=== PATIENT | female | born 1970 | race Caucasian/White ===

== ENCOUNTER 2022-10-16 12:03 | Outpatient (OUT) | payer BC, SELFPAY ==
--- NOTE | 2022-10-16 12:13 | XR_ITS ---
The [address] [address] Patient Name: CALLUM OSHEA MRN: [id number] date: 1970 Sex: F Assigned Patient Location: [facility] Current Patient Location: [facility] Accession/Order Number: [id number] Exam Date: 10/16/2022 12:18 Report Date: 10/16/2022 12:33 At the request of: RAF ELENA Procedure: XR chest 2V EXAM: XR chest 2V HISTORY: Cough R05.8 COMPARISON: None. TECHNIQUE: PA and lateral views of the chest. FINDINGS: The cardiomediastinal silhouette is normal. No focal consolidation is identified. There is no pneumothorax. No pleural effusion is noted. The osseous structures are intact. IMPRESSION: No acute cardiopulmonary process. Electronically authenticated by: GENIA CAMACHO Date: 10/16/2022 12:33
== END 2022-10-16 12:04 | disposition home or self-care (01) ==
LOC: RAD 12:09
PROVIDERS: PCP Family Medicine; Visit Provider Family Medicine
DX: R05.8 Other specified cough (principal)
CPT/HCPCS: 71046

== ENCOUNTER 2023-08-02 14:27 | Outpatient (OUT) | payer BC, SELFPAY ==
[2023-08-02 14:55] LABS: Basophils Absolute Auto 0.1 10^3/uL (0.0-0.1); Basophils Percent Auto 1.1 % (0.2-2.0); Eosinophils Absolute Auto 0.1 10^3/uL (0.0-0.7); Eosinophils Percent Auto 1.3 % (0.9-7.0); Hematocrit 39.9 % (36.0-48.0); Hemoglobin 13.4 g/dL (12.0-16.0); Immature Granulocytes Abs Auto 0.01 10^3/uL (0.00-0.03); Immature Granulocytes Pct Auto 0.2 % (0.0-0.5); Lymphocytes Absolute Auto 1.6 10^3/uL (1.2-3.8); Lymphocytes Percent Auto 33.8 % (20.5-60.0); Mean Corpuscular HGB Conc 33.6 g/dL (29.9-35.2); Mean Corpuscular Hemoglobin 32.6 pg (26.7-34.0); Mean Corpuscular Volume 97.1 fL (81.0-99.0); Mean Platelet Volume 9.1 fL (9.5-13.5); Monocytes Absolute Auto 0.4 10^3/uL (0.3-0.8); Monocytes Percent Auto 8.8 % (1.7-12.0); Neutrophils Absolute Auto 2.6 10^3/uL (1.4-6.5); Neutrophils Percent Auto 54.8 % (43.0-75.0); Platelet Count 383 10^3/uL (150-450); Red Blood Count 4.11 10^6/uL (4.20-5.40); Red Cell Distribution Width 11.6 % (11.0-15.0); White Blood Count 4.7 10^3/uL (4.0-11.0)
[2023-08-02 15:07] LABS: Estimated Average Glucose 100 mg/dL; Glycohemoglobin A1C 5.1 % (4.5-6.2)
[2023-08-02 16:02] LABS: Alanine Aminotransferase 20 U/L (14-59); Albumin Globulin Ratio 1.4; Albumin Level 4.3 g/dL (3.4-5.0); Alkaline Phosphatase 48 U/L (46-116); Anion Gap 11.6; Aspartate Amino Transferase 15 U/L (15-37); BUN Creatinine Ratio 17.3; Bilirubin Total 0.6 mg/dL (0.2-1.0); Calcium 9.1 mg/dL (8.5-10.1); Carbon Dioxide 30.1 mmol/L (21.0-32.0); Chloride 98 mmol/L (98-107); Chol HDL Ratio 2.4; Cholesterol 232 mg/dL (<=200); Estimated GFR (African America >60 (>=60); Estimated GFR (Non-African Ame >60 (>=60); Free T3 2.78 pg/mL (2.18-3.98); Globulin 3.1 g/dL; Glucose 94 mg/dL (74-106); HDL Cholesterol 98 mg/dL (40-60); Sodium 137 mmol/L (136-145); Thyroid Stimulating Hormone 4.449 uIU/mL (0.358-3.740); Total Protein 7.4 g/dL (6.4-8.2); Triglycerides 50 mg/dL (<=150)
[2023-08-02 16:12] LABS: Potassium 2.7 mmol/L (3.5-5.1)
[2023-08-03 10:09] LABS: Insulin 5.8 uIU/mL (2.6-24.9)
== END 2023-08-02 14:28 | disposition home or self-care (01) ==
LOC: LAB 14:29
PROVIDERS: PCP Family Medicine; Visit Provider Family Medicine
DX: Z00.00 Encounter for general adult medical examination without abnormal findings (principal)
CPT/HCPCS: 36415; 80053; 80061; 83036; 83525; 83540; 84436; 84443; 84481; 85025

== ENCOUNTER 2023-09-02 16:46 | Outpatient (OUT) | payer BC, SELFPAY ==
[2023-09-02 17:30] LABS: Thyroid Stimulating Hormone 7.612 uIU/mL (0.358-3.740)
[2023-09-02 18:27] LABS: Free T4 1.03 ng/dL (0.76-1.46)
== END 2023-09-02 16:47 | disposition home or self-care (01) ==
PROVIDERS: PCP Family Medicine; Visit Provider Family Medicine
DX: R79.89 Other specified abnormal findings of blood chemistry (principal)
CPT/HCPCS: 36415; 84439; 84443

== ENCOUNTER 2025-03-25 19:30 | Emergency (ER) | payer BC, SELFPAY ==
--- OUTSIDE RECORDS SUMMARY | 2024-09-15 09:30 | XMS_ITS ---
Author Organization The [facility] in [place] Address [address] [place] [address] Care Team Providers Care Tube Room Cashier Name Role Phone Torito Chaney Primary Care Provider REASON FOR VISIT sore throat Encounters Encounter Location Date Provider Diagnosis [facility] [address] [place] [address] 09/15/2024 Torito Chaney Plan Of Treatment Next Appt Details Provider Name:Torito Chaney, 02:30:00 PM, [address] [place], [address], Progress Notes * Araseli BAE ADOB:1970 (54 yo F)Acc No.[id number]:09/15/2024 UNLOCKED PROGRESS NOTE Progress Note Patient: Romulo HORTA Araseli Vyas :?Christian Chaney ([facility]), MDDOB:1970???Age: 53 Y???Sex:FemaleDate:09/15/2024Phone:[phone]:[address], [place], [place] Subjective: * Chief Complaints: * 1 . Sore throat. * Medical History: Objective: * Vitals: Assessment: Plan: * Treatment: * * Electronic signature of Torito Chaney MD, [id number] on 03/25/2025 at 08:14 PM EST Sign off status: PendingVisit Status:?CANC (Cancelled) * Provider: Raúl Chaney ([facility])MD Date: 0 09/15/2024 Generated for Printing/Faxing/eTransmitting on:?03/25/2025 08:14 PM EST
--- OUTSIDE RECORDS SUMMARY | 2024-12-19 09:30 | XMS_ITS ---
Author Organization The [facility] in [place] Address [address] [place] [address] Care Team Providers Care Solderer Electronic Name Role Phone Torito Chaney Primary Care Provider [phone] REASON FOR VISIT weight check Vital Signs Height 64 in 12/19/2024 Encounters Encounter Location Date Provider Diagnosis [facility] [address] [place] [address] 12/19/2024 Torito Chaney Plan Of Treatment Next Appt Details Provider Name:Torito Chaney, 02:30:00 PM, [address] [place], [address], Progress Notes * Araseli BAE ADOB:1970 (54 yo F)Acc No.[id number]:12/19/2024 UNLOCKED PROGRESS NOTE Nurse Visit Patient: Romulo Araseli HORTA :?Christian Chaney ([facility]), MDDOB:1970???Age: 54 Y???Sex:FemaleDate:12/19/2024Phone:[phone]:[address], [place], [place]D[place] In:02:33 PM EST Subjective: * Chief Complaints: * 1 . Weight check. * Medical History: Objective: * Vitals: H t: 64 in, Ht-cm: 162.56 cm. Assessment: Plan: * Treatment: * * Electronic signature of Torito Chaney MD, [id number] on 03/25/2025 at 08:13 PM EST Sign off status: PendingVisit Status:?CANCPHONE (Cancelled Phone) * Provider: Raúl Chaney ([facility])MD Date: 0 12/19/2024 Generated for Printing/Faxing/eTransmitting on:?03/25/2025 08:13 PM EST
[2025-03-25 19:52] VITALS: BP 149/96; PULSE 86; TEMP 37.1; O2SAT 96; BMI 23.1
--- NOTE | 2025-03-25 19:58 | XR_ITS ---
The [place] [id number] Patient Name: CALLUM OSHEA MRN: [id number] date: 1970 Sex: F Assigned Patient Location: ER Current Patient Location: Accession/Order Number: [id number] Exam Date: 03/25/2025 20:17 Report Date: 03/26/2025 07:36 At the request of: NAHID METCALF Procedure: XR wrist RT min 3V RIGHT WRIST - 3 views COMPARISON: None CLINICAL DATA: Patient fell and has pain at the right wrist. AP, lateral and oblique views were obtained. There is a comminuted intra-articular fracture at the distal radius. There is slight apex volar angulation. There is also a mildly displaced ulnar styloid fracture. No dislocation is identified. Soft tissue swelling is seen. XR/XR wrist RT min 3V IMPRESSION: FRACTURES AT THE DISTAL RADIUS AND ULNAR STYLOID. Impression dictated by: Jenny Galo M.D. 03/26/2025 7:36 AM Dictation Location: [place] [address] Electronically authenticated by: [id number] Y Date: 03/26/2025 07:36
--- NOTE | 2025-03-25 19:58 | ED.UPPEXIN1 ---
HPI HPI - Extremity Injury (Upper) General Chief Complaint: Extremity Injury, Upper Stated Complaint: Extremity Injury, Upper Time Seen by Provider: 03/25/25 19:55 Source: patient Mode of arrival: walk-in Limitations: no limitations History of Present Illness HPI narrative: cc - right wrist injury Patient tripped over her grand-daughter and fell onto outstretched right arm. She told me I heard a really loud crack . Right wrist deformity. This occurred about an hour ago and she had not taken anything for the pain. No other injuries or complaints - she denied hitting her head, injuring her neck, back or torso or any other extremities. She is right handed. Related Data Home Medications ?Medication ?Instructions ?Recorded ?Confirmed levothyroxine 75 mcg tablet mcg 03/25/25 phentermine 37.5 mg tablet mg 03/25/25 potassium chloride 20 mEq meq PO 03/25/25 tablet,extended release(part/cryst) temazepam 30 mg capsule mg 03/25/25 Previous Rx's ?Medication ?Instructions ?Recorded hydrocodone 5 mg-acetaminophen 325 1 tab PO Q6H PRN pain 5 days #14 03/25/25 mg tablet tabs Allergies Allergy/AdvReac Type Severity Reaction Status Date / Time No Known Drug Allergies Allergy Verified 03/25/25 19:54 Opioid HPI Opioid Management Most Recent Pain and Opioid Data: Last Pain Scale 8 Today, 20:04 Last MAR Pain Assessment Today, 20:04 PFSH PFSH Social History Little interest or pleasure in doing things: not at all Feeling down, depressed, or hopeless: not at all Exam Narrative Exam Narrative: Nurses note and vital signs reviewed and patient is not hypoxic. afebrile General: The patient appears well and in no apparent distress. Patient is resting comfortably on cart. GCS = 15. Skin: Warm, dry, no pallor noted. Head: Normocephalic, atraumatic Neck: Supple, trachea mid-line. Full ROM and no cervical spinal tenderness. Eyes: PERRLA, EOMI ENT: No oral or maxillofacial injury Cardiovascular: Regular Rate and Rhythm Respiratory: Patient is in no distress, no accessory muscle use, lungs are clear to auscultation, no wheezing, rales or rhonchi Back: No thoracic vertebral or lumbar vertebral tenderness to palpation. Musculoskeletal: Right wrist = deformity with volar displacement of the distal right forearm with respect to the right hand. Patient neurovascularly intact distally. No additional sign of long bone fracture - no right clavicular, right shoulder, right humeral, right elbow, proximal right forearm tenderness. No right hand or finger swelling.Moves remaining 3 extremities in all modalities with 5/5 strength. Neurological: A&O x4, normal speech, normal coordination, normal motor, normal sensory. Psychiatric: Cooperative Constitutional Vital Signs, click to edit/add: Last Vital Signs Temp 98.8 F 03/25/25 19:52 Pulse 71 03/25/25 21:22 Resp 18 03/25/25 19:52 BP 149/96 H 03/25/25 19:52 Pulse Ox 97 03/25/25 21:22 O2 Del Method Room Air 03/25/25 19:52 Course Vital Signs Vital signs: Vital Signs Temperature 98.8 F 03/25/25 19:52 Pulse Rate 86 03/25/25 19:52 Respiratory Rate 18 03/25/25 19:52 Blood Pressure 149/96 H 03/25/25 19:52 Pulse Oximetry 96 03/25/25 19:52 Oxygen Delivery Method Room Air 03/25/25 19:52 Temperature 98.8 F 03/25/25 19:52 Pulse Rate 71 03/25/25 21:22 Respiratory Rate 18 03/25/25 19:52 Blood Pressure 149/96 H 03/25/25 19:52 Pulse Oximetry 97 03/25/25 21:22 Oxygen Delivery Method Room Air 03/25/25 19:52 MDM - Extremity Injury (Upper) MDM Narrative Medical decision making narrative: Patient was given medication for pain and x-rays of the right wrist were obtained. She has a compression type fracture of the distal right radius and ulna with angulation and displacement -the hand is displaced in a dorsal direction from the distal forearm. Patient was agreeable to allow us to put in a peripheral IV and give her some Versed and Dilaudid, as well as some Zofran for nausea prevention, so that I can attempt to straighten this as we placed the patient in an OCL splint on the volar surface of the hand and forearm. The BETO Saleh - assisted me as I applied traction distally after placing the volar OCL splint. Post-reduction xrays showed adequate re-alignment. Pt discharged home with prescription for [place] for breakthrough pain and a referral to [facility]. Pt given information of proper care of splint. Imaging Data xr wrist: Attestation: I personally reviewed and interpreted this imaging study as follows: My impression: Compression fracture of the distal right radius and ulna with angulation and displacement with the right hand dorsally displaced from the distal right forearm post-reduction xr wrist: Attestation: I personally reviewed and interpreted this imaging study as follows: My impression: post-reduction fracture distal radius and ulna - improved alignment in both lateral and AP abraham Discharge Plan Discharge Chief Complaint: Extremity Injury, Upper Clinical Impression: Closed fracture of distal end of right radius, Closed fracture of distal end of right ulna Patient Disposition: Home, Self-Care Time of Disposition Decision: 21:26 Prescriptions / Home Meds: New hydrocodone-acetaminophen 5-325 mg tablet 1 tab PO Q6H PRN (Reason: pain) 5 Days Qty: 14 0RF No Action phentermine 37.5 mg tablet levothyroxine 75 mcg tablet potassium chloride 20 mEq tablet,ER particles/crystals PO temazepam 30 mg capsule Print Language: Italian Instructions: Wrist Fracture in Adults (ED), Splint Care (ED) Referrals: Arnav Ricks MD [Physician, Orthopedics] - As soon as possible
[2025-03-25] MEDS: HYDROCODONE/ACET 5-325 MG TABLET 1 TAB PO (20:04)
--- OUTSIDE RECORDS SUMMARY | 2025-03-25 20:13 | XMS_ITS | Patient Health Record ---
Author Organization The [facility] in [place] Address [address] [place] [address] Care Team Providers Care Fiction Writer Name Role Phone Torito Chaney Primary Care Provider Allergies No Known Allergies Reason For Referral No Information Medications Medication SIG (Take, Route, Frequency, Duration) Notes Start Date End Date Status Adipex-P 37.5 MG 1 tablet before breakfast Orall y Once a day; Duration: 30 days 5ActiveAmoxicillin-Pot Clavulanate 875-125 MG1 tablet Orally every 12 hrs; Duration: 10 days5ActiveSUMAtriptan Succinate 100 MGTAKE 1 TABLET BY MOUTH AT ONSET, MAY REPEAT IN 1 HOUR; Duration: 90 daysActivePotassium Chloride Marina ER 20 MEQTAKE 1 TABLET BY MOUTH WITH FOOD TWICE DAILY; Duration: 90ActiveTemazepam 30 MG1 capsule at bedtime as needed Orally Once a day; Duration: 90 days5ActiveLevothyroxine Sodium 75 MCGTAKE 1 TABLET BY MOUTH ONCE DAILY IN THE MORNING ON AN EMPTY STOMACH; Duration: 90Active Social History Tobacco Use: Social History Observation Description Date Details (start date - stop date) Former Smoker 04/19/1988 - 04/19/1994 Tobacco Use/Smoking Question Answer Notes Patient is a former smoker When did you start smoking?04/19/1988When did you stop smoking?04/19/1994How long has it been since you last smoked?> 10 yearsAlcohol Screen (Audit-C) Question Answer Notes Did you have a drink containing alcohol in the p ast year? No [id number]QKX-[id number] (Standard) Question Answer Notes Did you have a drink containing alcohol in the p ast year? Yes How often did you have a drink containing alcohol in the past year?Never (0 point)How many drinks did you have on a typical day when you were drinking in the past year?1 or 2 drinks (0 point)How often did you have six or more drinks on one occasion in the past year?4 or more times a week (4 points)Points4 InterpretationPositive Problems Problem Type SNOMED Code ICD Code Onset Dates Problem Status W/U Status Risk Notes Problem Obesity (316724582) Obesity (E66.9) ActiveconfirmedProblemHypothyroid (91674885)Hypothyroid (E03.9)Activeconfirmed ProblemInsomnia (006471273)Insomnia (G47.00)ActiveconfirmedProblemAcute sinusitis (96817382)Acute sinusitis (J01.90)ActiveconfirmedProblemWell adult (792075716)Well adult (Z00.00)Activeconfirmed Vital Signs Blood pressure diastolic 88 mm Hg 03/01/2025 Jiwhmd93 in03/01/2025lood pressure idlwqrig354 mm Hg03/01/20257347Bfzibs274.4 lbs 03/01/2025BMI24.1 kg/m203/01/2025 Encounters Encounter Location Date Provider Diagnosis [address] [address] 03/29/2024 Torito Hoy Insomnia G47.00 and Hypothyroid E03.[address] [address] 07/06/2024 Torito Hoy Hypothyroid E03.[address] [address] 10/06/2024 Torito Hoy Obesity E66.9 and Encounter for medication review Z79.[address] [address] 01/31/2025 Torito Hoy Insomnia G47.00 and Encounter for medication review Z79.[address] [address] 03/01/2025 Torito Ritu Acute sinusitis J01. 90 [facility] [address] [place] [facility] [place] [address] 08/02/[address] [facility] [place] [facility] [place] [address] 09/06/2024[facility] [place] [facility] [place] [address]/Doug [facility]oyObesity E66.9[facility] [place] [facility] [place] [address]/Doug HoyObesity E66.9[facility] [place] [place] [address]/ Torito HoyInsomnia G47.00[facility] [facility] [place] [address]/Doug HoyInsomnia G47.00[facility] [address] [place] [facility] [place] [address]/Doug HoyInsomnia G47.00 [facility] [place] [place] [address] 08/02/2024Doug [place]oyHypothyroid E03.9[place] [address] [place] [place] [address]/[facility] [address] [place] [facility] [place] [address]/Doug HoyHypothyroid E03.9 Assessments Encounter Date Diagnosis (ICD Code) Assessment Notes Treatment Notes Treatment Clinical Notes Section Notes 03/29/2024 Insomnia (ICD-10 - G47.00) 03/29/2024Hypothyroid (ICD-10 - E03.9)07/06/2024Hypothyroid (ICD-10 - E03.9) 05/05/2024Obesity (ICD-10 - E66.9)06/01/2024Obesity (ICD-10 - E66.9)10/06/2024 Obesity (ICD-10 - E66.9)10/06/2024Encounter for medication review (ICD-10 - Z79.899)01/04/2025Insomnia (ICD-10 - G47.00)01/31/2025Insomnia (ICD-10 - G47.00) shooting for a goa l of 130 needs [employer] day -note given 01/31/2025Encounter for medication review (ICD-10 - Z79.899)03/01/2025ute sinusitis (ICD-10 - J01.90)05/05/2024Insomnia (ICD-10 - G47.00)06/01/2024 Insomnia (ICD-10 - G47.00)08/02/2024Hypothyroid (ICD-10 - E03.9)09/06/2024 Hypothyroid (ICD-10 - E03.9) Plan Of Treatment Pending Test Test Name Order Date CMP (COMPLETE METABOLIC PANEL) 4 HEMOGLOBIN A1C (GLYCO) 07/30/2023 IRON, TOTAL 07/30/2023 LIPID PANEL (CHOL/TRIG/HDL/LDL) 07/30/19 24 CBC WITH DIFF (EXP 02/2025) 07/30/2023 MAMM Mammograms CAD 07/30/2023 Insulin Level 07/30/2023 THYROID PROFILE WITH TSH 08/02/2023 XR CHEST 2 V 10/16/2022 THYROID PANEL (T4/TSH/FREE T3) 4 THYROID PANEL (T4/TSH/FREE T3) 4 Next Appt Details Provider Name:Torito Chaney, 02:30:00 PM, [address] [facility], [place], [address], Insurance Providers Payer Name Payer Address Payer Phone Subscriber Number Group Number Insured Name Patient Relationship to Insured Coverage Start Date Coverage End Date [employer] PPO PLUS LOCAL PLAN [address] [place] [address] [id number] James Bae Spouse - patient is the spouse of the insured 1 Medical (General) History Medical History History ICD Code Anxiety F41.9 Dupuytren contracture M72.0 Tension headache G44.209 Hypothyroidism E03.9 Insomnia G47.00 Surgical History Surgery Date(Month/Year) Carpal Tunnel Release Total Abdominal Hysterectomy
--- OUTSIDE RECORDS SUMMARY | 2025-03-25 20:13 | XMS_ITS | CCD ---
Author Organization [facility] CliniSymi Care Team Providers Care Apple Picking Supervisor Name Role Phone DR RAF ELENA Attending Unavailable DR RAF ELENA Consulting Unavailable DR RAF ELENA Primary Care Unavailable DR RAF ELENA Admitting Unavailable Problems Problem ClassificationProblemDateDocumented DateEpisodic/ChronicAcute bronchitis (1 source)Acute bronchitis, unspecified; Translations: [ACUTE BRONCHITIS UNSPECIFIED]Onset: 04-98-4380Dluewtop Results Test NameValueInterpretationReference RangeFacilityINSULINon 39-76-8209Udiqqlr 6.2 uIU/mLNormal2.6-24.9The [facility] CenterComment on above:Performed By: #### INSULIN #### [facility] [address] [place] [address] Dr. Niru Colón-CoV2 ANTIBODIES, NUCLEOCAPSIDon 44-99-9770CXEJ-CoV-2 (COVID- 19) RNA SUNIL+probe Ql (Unsp spec)NegativeNormalNegativeThe [facility] Comment on above:Result Comment: This sample does not contain detectable SARS-CoV-2 antibodies. This negative result does not rule out SARS-CoV-2 infection. Correlation with epidemiologic risk factors and other clinical and laboratory findings is recommended. Serologic results should not be used as the sole basis to diagnose or exclude recent SARS-CoV-2 infection. This assay will not detect antibodies induced by the currently available SARS-CoV-2 vaccines. The current vaccines elicit antibodies specific to the viral spike protein. [employer] offers two test codes that detect viral spike-specific antibodies: 891932 SARS-CoV-2 Semi-Quantitative Total Antibody, Desmond and 463646 SARS-CoV-2 Antibody, IgG, Desmond (Qualitative). Positive results with this SARS-CoV-2 Antibodies, Nucleocapsid assay suggest recent or previous natural infection with SARS-CoV-2.Performed By: #### CVDABS #### [facility] [address] [place] [address] Dr. Niru Genao AUTO DIFFon 41-79-4830XDOL #0.1 103/ulNormal0.0-0.1The [facility] CenterComment on above:Performed By: #### CBC #### [facility] [address] [place] [address] Dr. Niru MarxBasophils/100 WBC (Bld)1.4 %Normal0.2-2.0The [facility] Comment on above:Performed By: #### CBC #### [facility] [address] [place] [address] Dr. Niru Jackson #0.1 103/ulNormal0.0-0.7The [facility] CenterComment on above: Performed By: #### CBC #### [facility] [address] [place] [address] Dr. Niru Cardosoosinophils/100 WBC (Bld)2.8 %Normal0.9-7.0The [facility] Comment on above:Performed By: #### CBC #### [facility] [address] [place] [address] Dr. Niru Cardosorythrocyte distribution width (RBC) [Ratio]12.7 %Igusha15.0-15.0 The [facility] CenterComment on above:Performed By: #### CBC #### [facility] [address] [place] [address] Dr. Niru MarxHematocrit (Bld) [Volume fraction]38.8 %Ykwjjr85.0-48.0The [facility] CenterComment on above:Performed By: #### CBC #### [facility] [address] [place] [address] Dr. Niru MarxHemoglobin (Bld) [Mass/Vol]12.7 g/lPSgqjxe11.0-16.0The [facility] CenterComment on above:Performed By: #### CBC #### [facility] [address] [place] [address] Dr. Niru Freitas #0.01 10e3/ulNormal0.00-0.03The [facility] CenterComment on above:Performed By: #### CBC #### [facility] [address] [place] [address] Dr. Niru Freitas %0.3 %Normal0.0-0.5The [facility] CenterComment on above: Performed By: #### CBC #### [facility] [address] [place] [address] Dr. Niru Lopez #1.2 103/ulNormal1.2-3.8The [facility] CenterComment on above:Performed By: #### CBC #### [facility] [address] [place] [address] Dr. Niru Dumonthocytes/100 WBC (Bld)35.0 %Eaolhp66.5-60.0The [facility] CenterComment on above:Performed By: #### CBC #### [facility] [address] [place] [address] Dr. Niru Liao DIFF REQNONormalThe [facility] Medical CenterComment on above: Performed By: #### CBC #### [facility] [address] [place] [address] Dr. Niru Fang (RBC) [Entitic mass]32.9 ysSfngom97.7-34.0The [facility] CenterComment on above:Performed By: #### CBC #### [facility] [address] [place] [address] Dr. Niru Flores (RBC) [Mass/Vol]32.7 g/gXRnnkwi76.9-35.2The [facility] CenterComment on above:Performed By: #### CBC #### [facility] [address] [place] [address] Dr. Niru Barron (RBC) [Entitic vol]100.5 fLCritically high81.0-99.0The [facility] CenterComment on above:Performed By: #### CBC #### [facility] [address] [place] [address] Dr. Niru Mace #0.4 103/ulNormal0.3-0.8The [facility] CenterComment on above:Performed By: #### CBC #### [facility] [address] [place] [address] Dr. Niru Hannahocytes/100 WBC (Bld)11.0 %Normal1.7-12.0The [facility] Comment on above:Performed By: #### CBC #### [facility] [address] [place] [address] Dr. Niru Truong #1.8 103/ulNormal1.4-6.5The [facility] CenterComment on above:Performed By: #### CBC #### [facility] [address] [place] [address] Dr. Niru Odonnellophils/100 WBC (Bld)49.5 %Pzfzhx02.0-75.0The [facility] CenterComment on above:Performed By: #### CBC #### [facility] [address] [place] [address] Dr. Niru Mimslet mean volume (Bld) [Entitic vol]8.6 fLCritically low 9.5-13.5The [facility] CenterComment on above:Performed By: #### CBC #### [facility] [address] [place] [address] Dr. Niru MarxPLT377 103/ecFlprme592-336Cjb [facility] CenterComment on above: Performed By: #### CBC #### [facility] [address] [place] [address] Dr. Niru AmadorC3.86 106/ulCritically low4.20-5.40The [facility] CenterComment on above:Performed By: #### CBC #### [facility] [address] [place] [address] Dr. Niru MarxWBC3.5 103/ulCritically low4.0-11.0The [facility] CenterComment on above:Performed By: #### CBC #### [facility] [address] [place] [address] Dr. Niru Calderon THYROXINE INDEX T7on 58-14-2054GLF7.96NoLouis Stokes Cleveland VA Medical CenterComment on above:Performed By: #### CMP, LIPID, T7, TSH #### [facility] [address] [address] [address] Niru MarxT3U35.0 %Wukbfz03.5-40.5The [facility] CenterComment on above: Performed By: #### CMP, LIPID, T7, TSH #### [facility] [address] [address] [address] Niru MarxT4 [Mass/Vol]5.60 ug/dLNormal5.53-11.00[facility] Comment on above:Performed By: #### CMP, LIPID, T7, TSH #### [facility] [address] [address] [address] Niru MarxGLYCOHEMOGLOBIN A1Con 28-10-5476LQG RECOMMENDATIONADA THERAPEUTIC TARGET 6.0 - 7.0 ACTION SUGGESTED > 7.0NoLouis Stokes Cleveland VA Medical CenterComment on above:Performed By: #### A1C #### [facility] [address] [address] [address] Niru MarxGlucose [Mass/Vol]111 mg/dLAdena Fayette Medical CenterCommunson healthcare [facility] on above:Performed By: #### A1C #### [facility] [address] [address] [address] Niru MarxHbA1c (Bld) [Mass fraction]5.5 %Normal<=6.0The [facility] Comment on above:Performed By: #### A1C #### [facility] [address] [place] [address] Dr. Niru Vazquez 57-88-7357Xsts [Mass/Vol]105.0 ug/sBZswzpk24.0-170.0Memorial HospitalComment on above:Performed By: #### IRON #### [facility] [address] [address] [address] Niru MarxLIPID PROFILEon 86-98-1628QFUG-HDL RATIO NORMSEE [place] [facility] Health SystemComment on above:Result Comment: 3.3 - 4.4 LOW RISK 4.4 - 7.1 AVERAGE RISK 7.1 - 11.0 MODERATE RISK >11.0 HIGH RISKPerformed By: #### CMP, LIPID, T7, TSH #### [facility] [address] [address] [address] Niru MarxCholesterol [Mass/Vol]236 mg/dLCritically high<=200The [facility] CenterComment on above:Performed By: #### CMP, LIPID, T7, TSH #### [facility] [address] [address] [address] Niru MarxCholesterol in HDL [Mass/Vol]93 mg/dLAdena Fayette Medical Center Comment on above:Performed By: #### CMP, LIPID, T7, TSH #### [facility] [address] [place] [address] Dr. Niru Doveesterol in LDL [Mass/Vol]129.0 mg/dLAdena Fayette Medical CenterComment on above:Performed By: #### CMP, LIPID, T7, TSH #### [facility] [address] [place] [address] Dr. Niru Simmons.total/Cholesterol in HDL [Mass ratio]2.5 {ratio} NormalThe [facility] Medical CenterComment on above:Performed By: #### CMP, LIPID, T7, TSH #### [facility] [address] [place] [address] Dr. Niru Armstrong NORMAL> or = 60 mg/dl - LOW CARDIOVASCULAR RISK <40 mg/dl - HIGH CARDIOVASCULAR RISKAdena Fayette Medical CenterComment on above:Performed By: #### CMP, LIPID, T7, TSH #### [facility] [address] [address] [address] Niru Malloy CALC NORMALSEE BELOWAdena Fayette Medical CenterComment on above:Result Comment: <100 mg/dl OPTIMAL 100 - 129 mg/dl NEAR OR ABOVE OPTIMAL 130 - 159 mg/dl BORDERLINE HIGH 160 - 189 mg/dl HIGH >190 mg/dl VERY HIGH Performed By: #### CMP, LIPID, T7, TSH #### [facility] [address] [address] [address] Niru MarxTriglyceride [Mass/Vol]70 mg/dLNormal<=150The [facility] Comment on above:Performed By: #### CMP, LIPID, T7, TSH #### [facility] [address] [address] [address] Niru MarxVLDL CALC14.0 mg/dLNormalThe [facility] CenterComment on above: Performed By: #### CMP, LIPID, T7, TSH #### [facility] [address] [address] [address] Niru MarxPROF 14(COMP METB)on 01-69-7622Qzfbhxz [Mass/Vol]3.7 g/dLNormal 3.5-5.0The [facility] CenterComment on above:Performed By: #### CMP, LIPID, T7, TSH #### [facility] [address] [address] [address] Niru MarxAlbumin/Globulin [Mass ratio]1.0 {ratio}NormalThe [facility] CenterComment on above:Performed By: #### CMP, LIPID, T7, TSH #### [facility] [address] [address] [address] Niru Dale [Catalytic activity/Vol]56 U/AUjcnwm99-016Dwg [facility] CenterComment on above:Performed By: #### CMP, LIPID, T7, TSH #### [facility] [address] [address] [address] Niru Argueta [Catalytic activity/Vol]19 U/LNormal9-52The [facility] Comment on above:Performed By: #### CMP, LIPID, T7, TSH #### [facility] [address] [address] [address] Niru Kapoor gap [Moles/Vol]10.9 mmol/LNormalThe [facility] Comment on above:Performed By: #### CMP, LIPID, T7, TSH #### [facility] [address] [address] [address] Niru Flores [Catalytic activity/Vol]15 U/QUtbaew47-90Ily [facility] CenterComment on above:Performed By: #### CMP, LIPID, T7, TSH #### [facility] [address] [address] [address] Niru MarxBilirubin [Mass/Vol]0.4 mg/dLNormal0.2-1.3The [facility] Comment on above:Performed By: #### CMP, LIPID, T7, TSH #### [facility] [address] [place] [address] Dr. Niru MarxCalcium [Mass/Vol]8.6 mg/dLNormal8.4-10.2The [facility] Comment on above:Performed By: #### CMP, LIPID, T7, TSH #### [facility] [address] [place] [address] Dr. Niru MarxChloride [Moles/Vol]105 mmol/NFotdlg48-832[facility] Comment on above:Performed By: #### CMP, LIPID, T7, TSH #### [facility] [address] [place] [address] Dr. Niru MarxCO2 [Moles/Vol]27.3 mmol/DGouuaw15.0-30.0The [facility] Comment on above:Performed By: #### CMP, LIPID, T7, TSH #### [facility] [address] [place] [address] Dr. Niru MarxCreatinine [Mass/Vol]0.74 mg/dLNormal0.52-1.04The [facility] CenterComment on above:Performed By: #### CMP, LIPID, T7, TSH #### [facility] [address] [place] [address] Dr. Niru CardosoGFR-AF GRENADIAN>60Normal>=60The [facility] CenterComment on above:Performed By: #### CMP, LIPID, T7, TSH #### [facility] [address] [place] [address] Dr. Niru CardosoGFR-NON AF GRENADIAN>60Normal>=60The [facility] CenterComment on above:Performed By: #### CMP, LIPID, T7, TSH #### [facility] [address] [address] [address] Niru MarxGlobulin (S) [Mass/Vol]3.8 g/dLNormGrand Lake Joint Township District Memorial HospitalComment on above:Performed By: #### CMP, LIPID, T7, TSH #### [facility] [address] [address] [address] Niru MarxGlucose [Mass/Vol]101 mg/dUEkubjw64-145XzvMemorial Hospital Comment on above:Performed By: #### CMP, LIPID, T7, TSH #### [facility] [address] [place] [address] Dr. Niru MarxPotassium [Moles/Vol]4.2 mmol/LNormal3.4-5.0The [facility] Comment on above:Performed By: #### CMP, LIPID, T7, TSH #### [facility] [address] [place] [address] Dr. Niru MarxProtein [Mass/Vol]7.5 g/dLNormal6.1-8.2[facility] Comment on above:Performed By: #### CMP, LIPID, T7, TSH #### [facility] [address] [place] [address] Dr. Niru MarxSodium [Moles/Vol]139 mmol/WXqrqtk778-702Puw [facility] Comment on above:Performed By: #### CMP, LIPID, T7, TSH #### [facility] [address] [place] [address] Dr. Niru MarxUrea nitrogen [Mass/Vol]15.0 mg/dLNormal7.0-17.0Memorial HospitalComment on above:Performed By: #### CMP, LIPID, T7, TSH #### [facility] [address] [place] [address] Dr. Niru Sheikh nitrogen/Creatinine [Mass ratio]20.3 mg/mgNoLouis Stokes Cleveland VA Medical CenterComment on above:Performed By: #### CMP, LIPID, T7, TSH #### [facility] [address] [place] [address] Dr. Niru Wayne 11-90-5737RWX7.143 uIU/mLCritically high0.470-4.680Memorial HospitalComment on above:Performed By: #### CMP, LIPID, T7, TSH #### [facility] [address] [place], [place] [address] Dr. Niru Nelson [facility] HospitalComment on above: Result Comment: <0.34 UIU/ml HYPERTHYROID 0.34-5.60 UIU/ml EUTHYROID >5.60 UIU/ml HYPOTHYROIDPerformed By: #### CMP, LIPID, T7, TSH #### [facility] [id number] Niru Wills 72-41-5023Ivolilyon From: Ester Williamson CMA To: LORENA - Reminders/Recalls; Sent: 10/13/2018 11:55:00 EDT Show up: 12/18/2018 11:54:00 EDT Subject: 2018 RECALL Due Date/Time: 01/22/2019 11:54:00 EDT Reminder/Recall Colonoscopy recall [address] Reynolds Due 01/22/19 First Recall Letter Sent Clp Second Recall Letter [facility] Encounters Encounter DateEncounter TypeCare ProviderFacilityStart: 86-54-2161Qyfkqbqtn for general adult medical examination without abnormal findingsDR RAF LantiguaC[facility] Clinic [facility] Hospitaltart: 05-30-2021 End: 59-64-6085efowklcaicJG RAF HOYFacility:V5Oujde: 05-30-2021 End: 85-76-1668Fojlfajqm for general adult medical examination without abnormal findingsDR RAF HOYFacility:H1 Payers DatePayer CategoryPayerPolicy [id number] Summary Purpose Family History No Family History Records FoundNo Family History Records Found Advance Directives No Advanced Directives Records FoundNo Advanced Directives Records Found Additional Source Comments INFORMATION SOURCE (unrecogn ized section and content) DATE CREATED AUTHOR 02/07/2019 [facility] DATE CREATED AUTHOR AUTHOR'S DREW BARTLETT 05/14/2022 [facility] FOR RECORDS PERTAINING TO PATIENTS WHO ARE OR HAVE BEEN ENROLLED IN A CHEMICAL DEPENDENCY/SUBSTANCEABUSE PROGRAM, SOME INFORMATION MAY BE OMITTED. This clinical summary was aggregated from multiple sources. Caution should be exercised in using it in the provision of clinical care. This summary normalizes information from multiple sources, and as a consequence, information in this document may materially change the coding, format and clinical context of patient data. In addition, data may be omitted in some cases. CLINICAL DECISIONS SHOULD BE BASED ON THE PRIMARY CLINICAL RECORDS. [employer] provides no warranty or guarantee of the accuracy or completeness of information in this document.
[2025-03-25] MEDS: MIDAZOLAM HCL 2 MG/2 ML VIAL IV (20:50)
[2025-03-25] MEDS: HYDROMORPHONE HCL 1 MG/ML CARTRIDGE IVP (20:50)
--- NOTE | 2025-03-25 21:04 | XR_ITS ---
The [address] [address] Patient Name: CALLUM OSHEA MRN: [id number] date: 1970 Sex: F Assigned Patient Location: ER Current Patient Location: Accession/Order Number: [id number] Exam Date: 03/25/2025 21:08 Report Date: 03/26/2025 07:37 At the request of: CLARISA YUEN Procedure: XR wrist RT min 3V RIGHT WRIST - 3 views COMPARISON: 03/25/2025 CLINICAL DATA: Follow-up after closed reduction of wrist fractures. AP, lateral and oblique views were obtained. There is a volar splint with some associated artifact. There is redemonstration of an intra-articular fracture at the distal radius. There is improvement of the volar angulation on the prior. A mildly styloid fracture is again noted. No dislocation is seen. XR/XR wrist RT min 3V IMPRESSION: DISTAL RADIAL FRACTURE WITH IMPROVED ALIGNMENT FOLLOWING CLOSED REDUCTION. ULNAR STYLOID FRACTURE. Impression dictated by: Jenny Galo M.D. 03/26/2025 7:37 AM Dictation Location: [place] [address] Electronically authenticated by: [id number] Date: 03/26/2025 07:37
[2025-03-25 21:22] VITALS: PULSE 71; O2SAT 97
== END 2025-03-25 21:39 | disposition home or self-care (01) ==
PROVIDERS: Emergency Provider Emergency Medicine; PCP Family Medicine
DX: S52.591A Other fractures of lower end of right radius, initial encounter for closed fracture (principal); S52.691A Other fracture of lower end of right ulna, initial encounter for closed fracture; W19.XXXA Unspecified fall, initial encounter
CPT/HCPCS: 25605; 73110; 96374; 96375; 99284; 99285; J1171; J2250; J2405